=== PATIENT | male | born 1965 | race Caucasian/White ===

== ENCOUNTER 2019-05-03 01:06 | Emergency (ER) | payer OTHER ==
[~2019-05-03] VITALS: Ht 167.6 cm; Wt 74.8 kg
--- NOTE | 2019-05-03 01:21 | NUR ---
[facility] FROM [facility] WHERE HE IS STAYING. AAOX4. NO RESP DISTRES NOTED. BROUGHT IN ON JOHN. CAME IN FOR SYNCOPAL EPISODE AND L LOWER LIP. ACORIDNG TO PT, HE WAS SITTING ON THE TOILET TRYING TO HAVE A BM AND NEXT THING HE REMEMBERS IS HE IS ON THE FLOOR BEING HELPED BY ONE OF HIS ROOM MATES. PT REPORTS THAT HE HAVENT HAVE A B,M FOR 3 DAY AND HE IS CONSTIPATED. PT DENIES ANY CP OR SOB. DENIES NVD. MD AT BEDSIDE FOR EVAL. ORDERS RECEIVED, NOTED, AND CARRIED OUT. EKG AT BEDSIDE. BLOOD DRAWN BY F[employer] OPERATIONS TECHNICAL DIRECTOR. ORDERED TO HOLD IV LINE INSERTION FOR NOW.
[2019-05-03 01:30] LABS: BASOPHILS % (AUTO) 0.6 % (0.0-2.0); EOSINOPHILS % (AUTO) 1.4 % (0.0-6.0); HEMATOCRIT 46 % (39-51); HEMOGLOBIN 15.6 g/dL (13.5-17.5); LYMPHOCYTES # (AUTO) 2.3 /CMM (0.8-4.8); LYMPHOCYTES % (AUTO) 31.4 % (20.0-44.0); MEAN CORPUSCULAR HGB CONC 34 g/dl (31.0-36.0); MEAN CORPUSCULAR VOLUME 90 fL (80-96); MONOCYTES # (AUTO) 0.5 /CMM (0.1-1.30); MONOCYTES % (AUTO) 7.5 % (2.0-12.0); NEUTROPHILS # (AUTO) 4.2 /CMM (1.8-8.9); NEUTROPHILS % (AUTO) 59.1 % (43.0-81.0); PLATELET COUNT (AUTO) 229 /CMM (150-450); RED BLOOD CELL COUNT(AUTO) 5.17 MIL/uL (4.5-6.0); WHITE BLOOD COUNT (AUTO) 7.2 K/uL (4.3-11.0)
[2019-05-03] MEDS ORDERED: IV NS 0.9% 500 ML BAG IV ONE (01:30)
--- NOTE | 2019-05-03 01:30 | NUR ---
JESSICA SILVERMAN [facility] [phone]
[2019-05-03 01:42] LABS: CARBON DIOXIDE 29 mmol/L (21-32); CHLORIDE 100 mmol/L (98-107); CREATININE 1.3 mg/dL (0.6-1.3); GLUCOSE 115 mg/dL (74-106); POTASSIUM 4.3 mmol/L (3.5-5.1); SODIUM SERUM 136 mmol/L (136-145); UREA NITROGEN, BLOOD 8 mg/dL (7-18)
[2019-05-03 01:47] LABS: ALANINE AMINOTRANSFERASE 35 U/L (12-78); ALBUMIN 3.6 g/dL (3.4-5.0); ALKALINE PHOSPHATASE 81 U/L (46-116); ASPARTATE AMINOTRANSFERASE 22 U/L (15-37); BILIRUBIN,DIRECT 0.2 mg/dL (0.0-0.2); BILIRUBIN,TOTAL 0.7 mg/dL (0.2-1.0); TOTAL PROTEIN, SERUM 7.7 g/dL (6.4-8.2)
--- NOTE | 2019-05-03 01:57 | NUR ---
PT TO CT ON JOHN
--- NOTE | 2019-05-03 02:40 | NUR ---
MESSAGE LEFT FOR INDRA LOPEZ OF PLACE WHERE PT IS STAYING
--- NOTE | 2019-05-03 04:33 | NUR ---
SPOKE WITH MANAS, PT'S [facility] CALLED FOR PT'S DISCHARGE
--- NOTE | 2019-05-03 06:10 | NUR ---
Pt picked up by staff from [facility].
--- NOTE | 2019-05-03 06:10 | NUR ---
Patient discharged to home in stable condition. Written and verbal after care instructions given. Patient verbalizes understanding of instruction.Pt ambulatory with a steady gait
[2019-05-03 06:14] VITALS: BP 133/83
== END 2019-05-03 06:14 | disposition home or self-care (01) ==
LOC: ER 01:08
DX: S01.511A Laceration without foreign body of lip, initial encounter (principal); R55 Syncope and collapse; I10 Essential (primary) hypertension; Z88.0 Allergy status to penicillin; X58.XXXA Exposure to other specified factors, initial encounter; Y93.89 Activity, other specified; Y92.89 Other specified places as the place of occurrence of the external cause; Y99.8 Other external cause status
CPT/HCPCS: 36415; 70450-TC; 71045-TC; 80048-TC; 80076-TC; 82962-TC; 84484-TC; 85025-TC; 85730-TC